=== PATIENT | male | born 1995 | race Hispanic/Latino ===

== ENCOUNTER 2024-11-19 12:52 | Emergency (ER) | payer OTHER ==
[~2024-11-19] VITALS: Ht 182.9 cm; Wt 133.8 kg
[2024-11-19 13:26] LABS: APPEARANCE,URINE CLEAR (CLEAR); GLUCOSE, URINE (UA) NEGATIVE (NEGATIVE); LEUKOCYTE ESTERASE ,URINE NEGATIVE Leu/uL (NEGATIVE); NITRATE,URINE NEGATIVE (NEGATIVE); OCCULT BLOOD,URINE NEGATIVE (NEGATIVE)
[2024-11-19] MEDS: 0.9%NACL 1000ML 1,000 ML IV ONE (13:26)
[2024-11-19 13:28] LABS: ADD UA MICROSCOPIC NO
--- NOTE | 2024-11-19 13:35 | ERN ---
ED Note History of Present Illness Stated Complaint: ABD PAIN Chief Complaint: Abdominal Pain Time Seen by MD: 13:07 Time Seen by Midlevel: 13:07 Dictation: 29-YEAR-OLD MALE PRESENTS TO THE ED FOR EVALUATION OF RIGHT LOWER QUADRANT ABDOMINAL PAIN, NAUSEA, DIARRHEA FOR THE PAST THREE DAYS. REPORTS PAIN INITIALLY STARTED IN THE EPIGASTRIC REGION RADIATES TO THE RIGHT LOWER QUADRANT. MOTHER DENIES ANY PAST MEDICAL HISTORY. NO ABDOMINAL SURGERIES. DENIES CHEST PAIN, SHORTNESS OF BREATH, VOMITING Allergies: Coded Allergies: No Known Allergies (Unverified Allergy, Unknown, 11/19/24) Past Medical History Past Medical History: No Pertinent History Surgical History: None RN Note Reviewed/Agreed w/PFSH: Yes Review of System Dictation CONSTITUTIONAL: NEGATIVE FOR FEVER,CHILLS, AND WEIGHT LOSS EYES: NEGATIVE FOR INJURY, PAIN,REDNESS, AND DISCHARGE ENT: NEGATIVE FOR INJURY,PAIN OR SWELLING CARDIOVASCULAR: NEGATIVE FOR CHEST PAIN, PALPITATIONS, AND EDEMA RESPIRATORY: NEGATIVE FOR SHORTNESS OF BREATH, COUGH, AND WHEEZING, ABDOMEN/GI: POSITIVE FOR ABDOMINAL PAIN, NAUSEA, NEGATIVE FOR VOMITING, DIARRHEA, AND CONSTIPATION BACK: NEGATIVE FOR INJURY AND PAIN : NEGATIVE FOR INJURY, BLEEDING AND DISCHARGE MS/EXTREMITY: NEGATIVE FOR INJURY AND DEFORMITY SKIN: NEGATIVE FOR RASH, AND DISCOLORATION NEURO: NEGATIVE FOR HEADACHE, WEAKNESS, NUMBNESS, TINGLING, AND SEIZURE PSYCH: NEGATIVE FOR SUICIDE IDEATION, HOMICIDAL IDEATION, AND HALLUCINATIONS Review of Systems: was completed Initial Vital Sign VS Vital Signs Date Time Temp Pulse Resp B/P (MAP) Pulse Ox O2 Delivery O2 Flow Rate FiO2 11/19/24 12:53 98.8 86 16 133/82 99 Room Air 0 11/19/24 13:06 21 Physical Exam Dictation GENERAL: AWAKE, ALERT, NAD HEAD/FACE: NORMOCEPHALIC, ATRAUMATIC EYES: PERRL, EOMI, VISION AT BASELINE ENT: ORAL CAVITY CLEAR, TMS CLEAR, NO SIGNS OF INFECTION NECK: TRACHEA MIDLINE, SUPPLE, NO NUCHAL RIGIDITY CARDIOVASCULAR: RRR, NORMAL S1/S2, NO MRGS, NO JVD RESPIRATORY: CTAB, NO RESPIRATORY DISTRESS, NO RALES OR WHEEZES ABDOMEN: SOFT, RLQ TENDERNESS, NON-DISTENDED, NORMAL BOWEL SOUNDS, NO GUARDING OR REBOUND. SKIN: WARM, DRY, NORMAL TURGOR, NO RASH MS/EXTREMITY: PULSES EQUAL, NO CYANOSIS, NEUROVASCULAR INTACT, FROM NEURO: COAX4, GCS 15, STRENGTH 5/5, CN 2-12 INTACT, NORMAL CEREBELLAR EXAM, NORMAL GAIT, PSYCH: NORMAL BEHAVIOR, MOOD, AND AFFECT NORMAL Results (Laboratory/Radiology) Laboratory/Radiology Laboratory Tests Test 11/19/24 13:05 11/19/24 13:51 Urine Color YELLOW (YELLOW) Urine Appearance CLEAR (CLEAR) Urine pH 7.0 (5.0-8.0) Urine Specific Forrest 1.017 (1.001-1.031) Urine Protein NEGATIVE mg/dL (NEGATIVE) Urine Glucose (UA) NEGATIVE mg/dL (NEGATIVE) Urine Ketones NEGATIVE mg/dL (NEGATIVE) Urine Occult Blood NEGATIVE (NEGATIVE) Urine Nitrate NEGATIVE (NEGATIVE) Urine Bilirubin NEGATIVE mg/dL (NEGATIVE) Urine Urobilinogen 0.2 mg/dL (0.2-1.0) Urine Leukocyte Esterase NEGATIVE Boaz/uL White Blood Count 14.0 K/uL (4.8-10.8) H Red Blood Count 5.07 MIL/uL (4.50-6.20) Hemoglobin 16.7 g/dL (14.0-18.0) Hematocrit 47.8 % (42-54) Mean Corpuscular Volume 94.3 fL (79-99) Mean Corpuscular Hemoglobin 32.9 pg (27.0-33.0) Mean Corpuscular Hemoglobin Concent 34.9 g/dL (32.0-36.0) Red Cell Distribution Width 12.6 % (11.0-15.5) Platelet Count 377 K/uL (130-400) Mean Platelet Volume 10.6 fL (7.5-10.5) H Immature Granulocyte % (Auto) 0.4 % (0-1) Neutrophils (%) (Auto) 69.6 % (40.0-77.0) Lymphocytes (%) (Auto) 21.9 % (21.0-51.0) Monocytes (%) (Auto) 6.2 % (3.0-13.0) Eosinophils (%) (Auto) 1.4 % (0.0-8.0) Basophils (%) (Auto) 0.5 % (0.0-5.0) Neutrophils # (Auto) 9.7 K/uL (1.8-7.7) H Lymphocytes # (Auto) 3.1 K/uL (1.0-4.8) Monocytes # (Auto) 0.9 K/uL (0.1-1.0) Eosinophils # (Auto) 0.20 K/uL (0.00-0.70) Basophils # (Auto) 0.07 K/uL (0.00-0.20) Absolute Immature Granulocyte (auto 0.06 K/uL (0-1) Nucleated Red Blood Cells 0.0 % (0.0-0.19) Sodium Level 138 mmol/L (136-145) Potassium Level 3.5 mmol/L (3.5-5.1) Chloride Level 103 mmol/L (101-111) Carbon Dioxide Level 30 mmol/L (21-32) Blood Urea Nitrogen 9 mg/dL (7-18) Creatinine 0.9 mg/dL (0.5-1.3) Glomerular Filtration Rate Calc 120 mL/min (>90) Random Glucose 103 mg/dL (70-105) Total Calcium 8.7 mg/dL (8.5-10.1) Total Bilirubin 0.8 mg/dL (0.2-1.0) Aspartate Amino Transf (AST/SGOT) 28 U/L (10-37) Alanine Aminotransferase (ALT/SGPT) 54 U/L (12-78) Alkaline Phosphatase 93 U/L (50-136) Total Protein 7.2 g/dL (6.0-8.3) Albumin 3.5 g/dL (3.5-5.0) Lipase 19 U/L (16-77) Labs Reviewed?: Yes CT Scan Comment: PATIENT: DORI BENITEZ MR#: [id number] : 1995 SEX: M AGE: 29 LOCATION: ED ORDER [id number] STATUS: REG ER REPORT#: [id number] SERVICE 1312 REASON: Abdominal Pain ORDERING PHYSICIAN: YUSEF GRIFFIN PROCEDURE: ABD PEL W - CT ABDOMEN/PELVIS W/CONTRAST EXAM: CT Abdomen and Pelvis with IV contrast CLINICAL HISTORY: Abdominal Pain TECHNIQUE: Axial computed tomography images of the abdomen and pelvis with intravenous contrast. CONTRAST: Omnipaque 350 75ml. COMPARISON: None provided. FINDINGS: LUNG BASES: The lung bases appear clear. No pleural effusions are seen. LIVER: Enlarged liver with diffuse fatty infiltration. GALLBLADDER AND BILE DUCTS: The gallbladder appears within normal limits. No radioopaque gallstones are seen. No biliary ductal dilatation is evident. PANCREAS: Unremarkable. SPLEEN: Unremarkable. ADRENAL GLANDS: Unremarkable. KIDNEYS, URETERS, AND BLADDER: Thickening of the urinary bladder which may be due to underdistention or cystitis. Normal kidneys. No hydronephrosis. STOMACH AND BOWEL: No bowel obstruction or inflammation. APPENDIX: Normal appendix. PERITONEUM: No free fluid. No free air. LYMPH NODES: No lymphadenopathy is evident. REPRODUCTIVE: Unremarkable as visualized. VASCULATURE: No evidence of abdominal aortic aneurysm. BONES: No aggressive appearing osseous lesion. No acute osseous pathology evident. IMPRESSION: 1. Thickening of the urinary bladder which may be due to underdistention or cystitis. 2. Normal kidneys. No hydronephrosis. 3. No bowel obstruction or inflammation. Normal appendix. 4. Enlarged liver with diffuse fatty infiltration. /[place] DICTATED BY: AYANA LAY MD DATE: 11/19/241609 ELECTRONICALLY SIGNED BY: AYANA LAY MD DATE: 11/19/241609 ED Course ED Course Orders Procedure Category Date Status Time Cbc With Differential LAB 11/19/24 Complete 13:12 Comprehensive LAB 11/19/24 Complete Metabolic Panel 13:12 Urinalysis Profile LAB 11/19/24 Complete 13:12 Ct Abdomen/Pelvis CT 11/19/24 Resulted W/Contrast 13:12 0.9%Nacl 1000ml (Ns PHA 11/19/24 Complete 1000ml) 13:30 Ketorolac PHA 11/19/24 Complete Tromethamine 15mg/Ml 13:30 Ondansetron 4mg Inj PHA 11/19/24 Complete (Zofran 4mg Inj) 13:30 Lipase LAB 11/19/24 Complete 13:12 Iohexol (Omnipaque) PHA 11/19/24 Complete 14:15 Current Medications Medications (Trade) Dose Ordered Sig/Macie Route PRN Reason Start Time Stop Time Status Last Admin Dose Admin Iohexol (Omnipaque) 75 ml STK-MED ONCE IV 11/19/24 14:15 11/19/24 14:19 DC Ketorolac Tromethamine (toRADol) 15 mg ONCE ONCE IV 11/19/24 13:30 11/19/24 13:31 DC 11/19/24 13:26 Ondansetron HCl (zoFRAN 4MG INJ) 4 mg ONCE ONCE IVP 11/19/24 13:30 11/19/24 13:31 DC 11/19/24 13:26 Sodium Chloride 1,000 ml @ 0 mls/hr ONCE ONCE IV 11/19/24 13:30 11/19/24 13:31 DC 11/19/24 13:26 Vital Signs Date Time Temp Pulse Resp B/P (MAP) Pulse Ox O2 Delivery O2 Flow Rate FiO2 11/19/24 13:06 98.8 86 16 133/82 99 Room Air* 0 21 11/19/24 12:53 98.8 86 16 133/82 99 Room Air 0 Medical Decision Making MDM MDM: DIFFERENTIAL DIAGNOSIS: ACUTE APPENDICITIS, GASTROENTERITIS, GASTRITIS, PANCREATITIS NEED FOR HOSPITALIZATION: PATIENT DOES MEET CRITERIA FOR HOSPITALIZATION. NEED FOR EMERGENCY MAJOR/MINOR SURGERY: NO I INDEPENDENTLY INTERPRETED THE TEST THAT WERE PERFORMED, RESULTS WERE REVIEWED BY ME AND CONSIDERED FINDINGS ON RADIOLOGY IF ORDERED. MEDICAL MANAGEMENT AND EXAMINATION INTERPRETATION DISCUSSIONS WERE HAD BY ME WITH OTHER QUALIFIED HEALTHCARE PROFESSIONALS INDICATED FOR THE PATIENT'S CARE. 29-YEAR-OLD MALE PRESENTS TO THE ED FOR EVALUATION OF RIGHT LOWER QUADRANT ABDOMINAL PAIN, NAUSEA, DIARRHEA FOR THE PAST THREE DAYS. REPORTS PAIN INITIALLY STARTED IN THE EPIGASTRIC REGION RADIATES TO THE RIGHT LOWER QUADRANT. MOTHER DENIES ANY PAST MEDICAL HISTORY. NO ABDOMINAL SURGERIES. DENIES CHEST PAIN, SHORTNESS OF BREATH, VOMITING. PATIENT WITH SOME RIGHT LOWER QUADRANT TENDERNESS. NO REBOUND, GUARDING, RIGIDITY. PATIENT AFEBRILE. WBC 14.0. NORMAL LFTS. LIPASE WITHIN NORMAL LIMITS MOST LIKELY RULING OUT PANCREATITIS. NO ELECTROLYTE ABNORMALITIES. UA NOT CONSISTENT WITH UTI. CT SCAN WAS NEGATIVE FOR APPENDICITIS. CT SCAN DID SHOW ENLARGED LIVER WITH DIFFUSE FATTY INFILTRATION BUT NO ACUTE FINDING. UPON REEXAMINATION PATIENT IS FEELING BETTER. PATIENT WILL BE DISCHARGED HOME IN STABLE CONDITION RECOMMENDED FOLLOW UP WITH THE PCP. RETURN PRECAUTIONS DISCUSSED WITH PATIENT AND MOTHER AT BEDSIDE REGARDING SIGNS AND SYMPTOMS FOR ACUTE APPENDICITIS. THEY VERBALIZED UNDERSTANDING, AGREED WITH PLAN, AND ALL QUESTIONS WERE ANSWERED AT THIS TIME. DX & DISP Disposition: Discharge Departure Impression: Primary Impression: Gastroenteritis Condition: Stable Scripts Ondansetron (Ondansetron Odt) 4 Mg Tab.rapdis 4 MG PO Q6HPRN PRN for nausea, #16 TAB 0 Refills Prov: YUSEF GRIFFIN 11/19/24 Ibuprofen (Ibuprofen) 600 Mg Tablet 1 TAB PO TID for pain for 10 Days, #30 TAB 0 Refills with food Prov: YUSEF GRIFFIN 11/19/24 Additional Instructions: DISCHARGE HOME. REST. FOLLOW UP WITH PRIMARY CARE DRMary IN 24 HOURS. RETURN TO THE ER FOR ANY ACUTE CHANGE. PATIENT WAS ALSO ADVISED TO FOLLOW-UP WITH PRIMARY CARE PHYSICIAN IN 1 TO 2 DAYS FOR CONTINUED MONITORING. ALL INSTRUCTIONS WERE GIVEN TO LAYMANS TERM AND PATIENT AGREEABLE TO DISCHARGE AND PROPER FOLLOW-UP. Referrals: SELF,REFERRAL (PCP) I have reviewed the case, and I agree with, Diagnosis and Plan YUSEF GRIFFIN Nov 19, 2024 13:35
[2024-11-19 14:00] LABS: IMMATURE GRANULOCYTE ABSOLUTE 0.06 K/uL (0-1); NUCLEATED RED BLOOD CELLS 0.0 % (0.0-0.19); PLATELET COUNT (AUTO) 377 K/uL (130-400); RED BLOOD CELL COUNT(AUTO) 5.07 MIL/uL (4.50-6.20); RED CELL DISTRIBUTION WIDTH 12.6 % (11.0-15.5); WHITE BLOOD COUNT (AUTO) 14.0 K/uL (4.8-10.8)
[2024-11-19] MEDS ORDERED: IOHEXOL-350 75 ML VIAL IV ONE (14:15)
[2024-11-19 14:31] LABS: CREATININE 0.9 mg/dL (0.5-1.3); GLOMERULAR FILTR. RATE CALC 120.0 mL/min (>90); GLUCOSE,RANDOM 103.0 mg/dL (70-105); SODIUM SERUM 138.0 mmol/L (136-145); UREA NITROGEN, BLOOD 9.0 mg/dL (7-18)
[2024-11-19 14:40] LABS: ASPARTATE AMINOTRANSFERASE 28.0 U/L (10-37); TOTAL PROTEIN, SERUM 7.2 g/dL (6.0-8.3)
--- NOTE | 2024-11-19 15:10 | HMCIMG ---
EXAM: CT Abdomen and Pelvis with IV contrast CLINICAL HISTORY: Abdominal Pain TECHNIQUE: Axial computed tomography images of the abdomen and pelvis with intravenous contrast. CONTRAST: Omnipaque 350 75ml. COMPARISON: None provided. FINDINGS: LUNG BASES: The lung bases appear clear. No pleural effusions are seen. LIVER: Enlarged liver with diffuse fatty infiltration. GALLBLADDER AND BILE DUCTS: The gallbladder appears within normal limits. No radioopaque gallstones are seen. No biliary ductal dilatation is evident. PANCREAS: Unremarkable. SPLEEN: Unremarkable. ADRENAL GLANDS: Unremarkable. KIDNEYS, URETERS, AND BLADDER: Thickening of the urinary bladder which may be due to underdistention or cystitis. Normal kidneys. No hydronephrosis. STOMACH AND BOWEL: No bowel obstruction or inflammation. APPENDIX: Normal appendix. PERITONEUM: No free fluid. No free air. LYMPH NODES: No lymphadenopathy is evident. REPRODUCTIVE: Unremarkable as visualized. VASCULATURE: No evidence of abdominal aortic aneurysm. BONES: No aggressive appearing osseous lesion. No acute osseous pathology evident. IMPRESSION: 1. Thickening of the urinary bladder which may be due to underdistention or cystitis. 2. Normal kidneys. No hydronephrosis. 3. No bowel obstruction or inflammation. Normal appendix. 4. Enlarged liver with diffuse fatty infiltration. /[place]
[2024-11-19] MEDS ORDERED: ONDA-243 PO (15:26)
[2024-11-19] MEDS ORDERED: IBUP-1492 PO (15:26)
[2024-11-19 15:30] VITALS: BP 127/74; PULSE 82; RESP 16; TEMP 98.8; O2SAT 99
== END 2024-11-19 15:31 | disposition home or self-care (01) ==
LOC: EDH 12:52
DX: K52.9 Noninfective gastroenteritis and colitis, unspecified (principal)
CPT/HCPCS: 99285; 74177; 96374; 96375; 80053; 83690; 85025; 81003; 36415; J1885; J7030; J2405; Q9967